=== PATIENT | male | born 1985 | race Hispanic/Latino ===

== ENCOUNTER 2023-02-02 02:54 | Emergency (ER) | payer OTHER, MEDICAID ==
[2023-02-02] VITALS (13 sets, daily range): BP systolic 87–129; BP diastolic 57–92
[~2023-02-02] VITALS: Ht 177.8 cm; Wt 118.0 kg
[~2023-02-02 02:54] MED LIST: ACCU-CHEK AVIVAP100 XX; AMLODIPINE10 MG PO; AUGMENTIN875TAB PO; BLOOD GLUCOSE TEST S SC; FISH OIL1000 MG PO; GLIPIZIDE ER10 M1 PO; GLIPIZIDE ER5 M1 OR; HYDROCHLOROT12.5 MG PO; LANCETS 30G30 G SC; LISINOPRIL20 M1 OR; LOVASTATIN20 M1 OR; LOVASTATIN20 M1 PO; METFORMIN1000 MG OR; METFORMIN850 MG PO; MONITOR SC; NAPROSYN500 MG PO; PAROXETINE10 MG PO; PRAVASTATIN SOD10 MG PO; PRAVASTATIN SOD20 MG PO; ZOFRAN4 MG OR
[2023-02-02 03:43] LABS: BASO% 0.4 % (0-3); HEMATOCRIT 43.2 % (39.0-50.0); HEMOGLOBIN 14.4 g/dl (14.0-18.0); IMMATURE GRANULOCYTES 0.2 % (0.0-5.0); LYMPH% 36.8 % (15-41); MEAN CELL VOLUME 95.8 fL CALC (80.0-100.0); MEAN CORPUSCULAR HGB 31.9 pG CALC (26.0-32.0); MEAN CORPUSCULAR HGB CONC 33.3 g/dL CAL (32.0-36.0); MONO% 7.2 % (2-13); NEUT# 5.21 thou/uL (1.82-7.42); NEUT% 53.4 % (42-76); RED BLOOD COUNT 4.51 mill/uL (4.70-6.10); RED CELL DISTRI WIDTH 11.8 % (11.5-15.5)
[2023-02-02 03:54] LABS: ALBUMIN 3.9 g/dL (3.2-5.0); ALKALINE PHOSPHATASE 69 u/l (38-126); ANION GAP 14 (6-22 (CALC)); BILIRUBIN, TOTAL 0.4 mg/dL (0.2-1.3); BUN 17 mg/dL (9-20); BUN/CREATININE RATIO 21 (12-20 (CALC)); CHLORIDE 104 mmol/l (95-108); CPK 74 u/l (55-170); CREATININE 0.8 mg/dL (0.7-1.3); GFR FOR AFR.AMER. > 60 ML/MIN (>=60 (CALC)); GFR OTHER RACES > 60 ML/MIN (>=60 (CALC)); LIPASE 119 u/l (23-300); SGOT/AST 31 u/l (17-59); SODIUM 135 mmol/l (137-146); TOTAL PROTEIN 6.7 g/dL (6.3-8.2)
[2023-02-02 03:55] LABS: CARBON DIOXIDE 21 mmol/l (22-30)
[2023-02-02] MEDS ORDERED: METFORMIN500 M2 PO (05:15)
[2023-02-02] MEDS ORDERED: GLIPIZIDE10 M3 PO (05:16)
[2023-02-02] MEDS ORDERED: LISINOPRIL20 M1 PO (05:17)
[2023-02-02] MEDS ORDERED: AMLODIPINE BESY10 MG PO (05:17)
[2023-02-02] MEDS ORDERED: LOVASTATIN20 M1 PO (05:18)
[2023-02-02 07:18] LABS: URINE BILIRUBIN - DIPSTICK Negative (NEGATIVE); URINE BLOOD DIPSTICK Negative (NEGATIVE); URINE COLOR Yellow; URINE GLUCOSE - DIPSTICK 500 mg/dL (NEGATIVE); URINE KETONE Trace mg/dL (NEGATIVE); URINE LEUK ESTERASE Negative (NEGATIVE); URINE NITRITE - DIPSTICK Negative (Negative); URINE PH 5.5 (4.5-8.0); URINE PROTEIN - DIPSTICK Negative (NEG-TRACE); URINE UROBILINOGEN - DIPSTICK 0.2 E.U./dL (0.2)
== END 2023-02-02 08:23 | disposition home or self-care (01) | DRG 312 ==
LOC: ED 02:54
PROVIDERS: Internal Medicine
DX: R55 Syncope and collapse (principal); R51.9 Headache, unspecified; M54.2 Cervicalgia; V43.52XA Car driver injured in collision with other type car in traffic accident, initial encounter
CPT/HCPCS: Q9967

== ENCOUNTER 2024-04-20 01:08 | Emergency (ER) | payer OTHER ==
[~2024-04-20] VITALS: Ht 177.8 cm; Wt 117.9 kg
[~2024-04-20 01:08] MED LIST changes: +AMLODIPINE BESY10 MG PO; +GLIPIZIDE10 M3 PO; +LISINOPRIL20 M1 PO; +METFORMIN500 M2 PO
[2024-04-20] MEDS ORDERED: ACETAMINOPHEN 500 MG TAB PO ONE (01:15)
[2024-04-20] MEDS ORDERED: DICLOFENAC SODIUM 75 MG/TAB PO ONE (01:15)
[2024-04-20 02:26] VITALS: BP 118/72
== END 2024-04-20 02:34 | DRG 605 ==
LOC: ED 01:08
PROC: 0HQ0XZZ Repair Scalp Skin, External Approach (ICD-10-PCS; principal; 2024-04-20)
DX: S01.01XA Laceration without foreign body of scalp, initial encounter (principal); S20.211A Contusion of right front wall of thorax, initial encounter; Y04.0XXA Assault by unarmed brawl or fight, initial encounter

== ENCOUNTER 2024-05-06 09:52 | Emergency (ER) | payer MEDICAID ==
[~2024-05-06] VITALS: Ht 177.8 cm; Wt 118.0 kg
[2024-05-06 10:18] VITALS: BP 128/85
== END 2024-05-06 10:18 | disposition home or self-care (01) ==
LOC: ED 09:52
DX: S01.91XD Laceration without foreign body of unspecified part of head, subsequent encounter (principal); X58.XXXD Exposure to other specified factors, subsequent encounter